=== PATIENT | male | born 1955 ===

== ENCOUNTER → 2022-12-16 08:17 | Outpatient (CLI) | payer OTHER, SELFPAY ==
--- NOTE | ~2022-12-16 | MR_ITS ---
MRI of the right shoulder Technique: Axial proton-density fat-sat images, coronal proton density fat-sat and T2 fat-sat images, and sagittal T1-weighted and T2 fat-sat images were acquired. Clinical History: Pain Findings: There is advanced AC joint degenerative change, with small subacromial spur present. There is impingement upon the supraspinatus myotendinous junction region related to bony productive change at the distal clavicle. Coracoclavicular, coracoacromial, and coracohumeral ligaments appear intact. There is moderate grade articular surface partial thickness tearing at the distal supraspinatus tendo n insertion, with the area of tear measuring 8 x 4 mm in extent. There is severe infraspinatus tendin osis without partial or full-thickness tear. Subscapularis tendon demonstrates advanced tendinosis wi thout definite tear. Tendon of the long head of the biceps is intact. There is probable degenerative tearing of the anterosuperior, anterior, anterior inferior portions of the labrum. No degenerative change or effusion evident at the glenohumeral joint. Inferior glenohumeral ligament is intact. There is minimal fluid within the subacromial/subdeltoid bursa. No muscle atrophy or edema identified. Impression: 8 x 4 mm moderate grade articular surface partial tear of the distal supraspinatus tendon insertion. Severe infraspinatus and subscapularis tendinosis. Advanced AC joint degenerative change, as detailed above. Degenerative tearing of the anterosuperior, anterior, and anteroinferior portions of the labrum. Minimal subacromial/subdeltoid bursitis. Reviewed, dictated and finalized at [facility]. [employer] Impression: 8 x 4 mm moderate grade articular surface partial tear of the distal supraspina tus tendon insertion. Severe infraspinatus and subscapularis tendinosis. Advanced AC joint degenerative change, as detailed above. Degenerative tearing of the anterosuperior, anterior, and anteroinferior portio ns of the labrum. Minimal subacromial/subdeltoid bursitis.
== END ==
PROVIDERS: Visit Provider Orthopaedic Surgery
DX: M19.011 Primary osteoarthritis, right shoulder (principal); M75.51 Bursitis of right shoulder
CPT/HCPCS: 73221